=== PATIENT | male | born 1965 | race Two or more races ===

== ENCOUNTER 2023-11-02 22:32 | Emergency (ER) | payer MEDICAID, OTHER ==
[~2023-11-02] VITALS: Ht 175.3 cm; Wt 81.6 kg
[2023-11-02 22:47] VITALS: BP 160/84; TEMP 98; O2SAT 99
== END 2023-11-03 00:04 | disposition left against medical advice (07) ==
LOC: ER 22:34
DX: S00.12XA Contusion of left eyelid and periocular area, initial encounter (principal); W01.0XXA Fall on same level from slipping, tripping and stumbling without subsequent striking against object, initial encounter; Y93.89 Activity, other specified; Y92.89 Other specified places as the place of occurrence of the external cause; Y99.8 Other external cause status